=== PATIENT | male | born 1960 | race African-American/Black ===

== ENCOUNTER 2022-04-17 13:40 | Emergency (ER) | payer MEDICAID ==
[~2022-04-17] VITALS: Ht 185.4 cm; Wt 95.7 kg
[2022-04-17 13:51] VITALS: BP_SYST 142
--- NOTE | 2022-04-17 14:00 | NUR ---
Pt brought by self, A&Ox4, pt presents to ER with L eyelid pain and swelling, skin pink and warm, cap refill <3, VSS, will cont to monitor.
--- NOTE | 2022-04-17 14:41 | NUR ---
DR RENEE AT BEDSIDE FOR EVALUATION
[2022-04-17] MEDS ORDERED: OFLO5DRO6 OP (14:50)
[2022-04-17] MEDS ORDERED: CLIN-22 PO (14:52)
--- NOTE | 2022-04-17 14:57 | NUR ---
Patient given written and verbal discharge instructions and verbalizes understanding. ER MD discussed with patient the results and treatment provided. Patient in stable condition. ID arm band removed. IV catheter removed intact and dressing applied, no active bleeding. Rx of CLINDAMYCIN/OFLOXACIN given. Patient educated on pain management and to follow up with PMD. Pain Scale 0 Opportunity for questions provided and answered. Medication side effect fact sheet provided.
== END 2022-04-17 14:57 | disposition home or self-care (01) ==
LOC: SED 13:40
DX: H01.004 Unspecified blepharitis left upper eyelid (principal); Z79.899 Other long term (current) drug therapy
CPT/HCPCS: 99283